=== PATIENT | male | born 1995 | race Two or more races ===

== ENCOUNTER → 2025-02-24 | Outpatient (CLI) | payer MEDICAID, SELFPAY ==
--- NOTE | 2025-02-24 13:00 | XR_ITS ---
Examination: CT chest, without intravenous contrast. CT abdomen, without intravenous contrast. CT pelvis, without intravenous contrast. 2-D sagittal and coronal reconstructions. 3-D reconstructions. Date and time of exam:February 24, 2025 at 1310 hours INDICATIONS: Abnormal weight loss 50 pounds in 2 months, epigastric pain left upper abdominal pain CTDI vol (mgy) 6.62 DLP (MGycm)191 Technique: Multiple CT images, 3.0 mm slice thickness, obtained chest, abdomen, pelvis, with the high-resolution 64 slice scanner.. Sagittal and coronal 2-D reconstructions are obtained. 3-D reconstructions Low dose protocols were performed. One or more of the following dose reduction techniques were used; automated exposure control, adjustment of the mA and/or KV according to patient size, use of iterative reconstruction technique. Findings: Thoracic aorta pulmonary arteries are not enlarged No mediastinal lymphadenopathy Small granulomas in the lung [place] No pneumonia or pulmonary edema No visualized liver or splenic lesion Contracted gallbladder No pancreatic or adrenal mass No renal or ureteral calculi, no hydronephrosis Normal appendix No bowel obstruction Scattered colonic diverticulosis, no diverticulitis No prostatomegaly Contracted urinary bladder which shows wall thickening Intact osseous structures IMPRESSION: No mediastinal lymphadenopathy No pneumonia pulmonary edema or pleural disease No renal or ureteral calculi, no hydronephrosis Normal appendix Suspicious for mild cystitis
== END | disposition home or self-care (01) ==
PROVIDERS: PCP Student in an Organized Health Care Education/Training Program; Referring Provider Student in an Organized Health Care Education/Training Program; Visit Provider Student in an Organized Health Care Education/Training Program
DX: R68.81 Early satiety (principal); K92.1 Melena
CPT/HCPCS: 71250; 74176

== ENCOUNTER 2025-03-05 22:18 | Emergency (ER) | payer MEDICAID, SELFPAY ==
[2025-03-05 22:20] VITALS: BMI 25.0
--- NOTE | 2025-03-05 23:28 | PC.NURSE ---
@4485 PT TO BE SEEN BY [facility] AND NO ANSWER AT THIS TIME.
== END 2025-03-06 00:25 | disposition left against medical advice (07) ==
PROVIDERS: Emergency Provider Emergency Medicine
DX: Z53.21 Procedure and treatment not carried out due to patient leaving prior to being seen by health care provider (principal)